=== PATIENT | male | born 1955 | race Caucasian/White ===

== ENCOUNTER 2021-11-23 06:26 | Inpatient (IN) | payer SELFPAY ==
[~2021-11-23] VITALS: Ht 177.8 cm; Wt 100.3 kg
[2021-11-23] MEDS ORDERED: COZAAR100 MG PO (06:47)
[2021-11-23] MEDS ORDERED: HYDROCHLOROTHIA50 MG PO (06:47)
[2021-11-23] MEDS ORDERED: ACETAMINOPHEN325 M1 PO (11:15)
== END 2021-11-25 10:55 | disposition home or self-care (01) | DRG 177 ==
LOC: ED 06:26 → MS 06:28
PROVIDERS: ADMIT Internal Medicine; ATTEND Internal Medicine
PROC: XW033G6 Introduction of REGN-COV2 Monoclonal Antibody into Peripheral Vein, Percutaneous Approach, New Technology Group 6 (ICD-10-PCS; principal; 2021-11-23)
PROC: 3E0DX3Z Introduction of Anti-inflammatory into Mouth and Pharynx, External Approach (ICD-10-PCS; 2021-11-24)
PROC: 8E0ZXY6 Isolation (ICD-10-PCS; 2021-11-24)
DX: U07.1 COVID-19 (principal); J12.82 Pneumonia due to coronavirus disease 2019; I10 Essential (primary) hypertension; E86.0 Dehydration; G47.33 Obstructive sleep apnea (adult) (pediatric); Z79.899 Other long term (current) drug therapy; Z23 Encounter for immunization
CPT/HCPCS: 80048; 85025; 94762; 96374; 96375; 99285-25; A9270; C9803; J1650; J1885; J2405; J7030; M0243; Q0244; U0003